=== PATIENT | female | born 1985 | race Caucasian/White ===

== ENCOUNTER 2018-07-18 19:40 | Inpatient (IN) | payer BC ==
[~2018-07-18] VITALS: Ht 154.9 cm; Wt 56.9 kg
[~2018-07-18 19:40] MED LIST: PREN1TAB17 PO
[2018-07-18] MEDS ORDERED: HYDROmorphONE 1 MG/ML SYG IV STA (19:41)
[2018-07-18] MEDS ORDERED: SOD CHLORIDE 0.9% 1,000 ML IV STA (19:41)
[2018-07-18] MEDS ORDERED: ONDANSETRON 4 MG INJ IV STA (19:41)
[2018-07-18] MEDS ORDERED: KETOROLAC 15 MG INJ IV STA (19:41)
[2018-07-18] MEDS ORDERED: LORAZEPAM 2 MG INJ IV ONE (20:00)
[2018-07-18] MEDS ORDERED: HYDR25TA6 PO (21:42)
[2018-07-18] MEDS ORDERED: POTA10TA18 PO (21:43)
[2018-07-18] MEDS ORDERED: CEPH250C PO (21:43)
[2018-07-18] MEDS ORDERED: TAMS-14 PO (21:43)
[2018-07-18] MEDS ORDERED: TRAM1TAB58 PO (21:46)
[2018-07-18] MEDS ORDERED: CEFTRIAXONE 1 GM/50 ML (PMX) 50 ML IVPB ONE (22:00)
--- NOTE | 2018-07-18 22:22 | ERD ---
ER Documentation Chief Complaint Chief Complaint FLANK PAIN, SEEN TODAY; HX OF KIDNEY STONE HPI 33-year-old female who presents to the emergency room complaining of severe intractable left flank pain. Patient has a history of kidney stones. She just had lithotripsy today with ureteral stent placement. The patient has intractable 10 out of 10 pain that is now constant on the left side rating to the left lower quadrant. No fevers or chills chest pain or shortness of breath nausea or vomiting or diarrhea. ROS All systems reviewed and are negative except as per history of present illness. Medications Home Meds Reported Medications Tramadol HCl/Acetaminophen (Ultracet Tablet) 1 Each Tablet, 1 EACH PO BID, TAB 37.5MG-325MG BID 07/18/18 Tamsulosin Hcl* (Flomax*) 0.4 Mg Cap.er.24h, 0.8 MG PO HS, CAP 07/18/18 Potassium Citrate* (Potassium Citrate* ER) 10 Meq Tablet.sa, 10 MEQ PO TID, TAB.SA 07/18/18 Cephalexin* (Cephalexin*) 250 Mg Capsule, 250 MG PO DAILY, #28 CAP 07/18/18 Hydrochlorothiazide* (Hydrochlorothiazide*) 25 Mg Tab, 25 MG PO DAILY, #30 TAB 07/18/18 Discontinued Reported Medications Vit-Iron Fumarate-FA ( Tablet) 1 Each Tablet, 1 EACH PO DAILY 12/19/12 Allergies Allergies: Coded Allergies: meperidine (Unverified Allergy, Unknown, 07/18/18) sulfamethoxazole (Unverified Allergy, Unknown, 07/18/18) trimethoprim (Unverified Allergy, Unknown, 07/18/18) PMhx/Soc Hx Miscellaneous Medical Probl: Yes (KIDNEY STONES) Hx Alcohol Use: No Hx Substance Use: No Hx Tobacco Use: No Smoking Status: Never smoker FmHx Family History: No diabetes Physical Exam Vitals Vital Signs Date Temp Pulse Resp B/P (MAP) Pulse Ox O2 O2 Flow FiO2 Time Delivery Rate 07/18/18 98.0 79 19 118/89 99 20:00 (99) Physical Exam General: Extremely uncomfortable Head: Normocephalic, atraumatic. Eyes: Pupils equally reactive, EOM intact ENT: Moist mucous membranes Neck: Supple, no lymphadenopathy Respiratory: Lungs clear bilaterally, no distress Cardiovascular: RRR, no murmurs, rubs, or gallops Abdominal: Soft, non-tender, non-distended, no peritoneal signs : Deferred MSK: No edema, no unilateral swelling, 5/5 strength Neurologic: Alert and oriented, moving all extremities, normal speech, no focal weakness, no cerebellar signs Skin: No rash Psych: Normal mood Result Diagram: 07/18/18195507/18/181955 Results 24 hrs Laboratory Tests Test 07/18/18 19:56 07/18/18 21:18 07/18/18 21:22 White Blood Count 18.2 10^3/ul Red Blood Count 4.48 10^6/ul Hemoglobin 13.6 g/dl Hematocrit 38.6 % Mean Corpuscular Volume 86.2 fl Mean Corpuscular Hemoglobin 30.4 pg Mean Corpuscular 35.2 g/dl Hemoglobin Concent Red Cell Distribution Width 11.5 % Platelet Count 174 10^3/UL Mean Platelet Volume 12.4 fl Immature Granulocytes % 0.800 % Neutrophils % 80.1 % Lymphocytes % 8.5 % Monocytes % 9.9 % Eosinophils % 0.2 % Basophils % 0.5 % Nucleated Red Blood Cells % 0.0 /100WBC Immature Granulocytes # 0.150 10^3/ul Neutrophils # 14.6 10^3/ul Lymphocytes # 1.5 10^3/ul Monocytes # 1.8 10^3/ul Eosinophils # 0.0 10^3/ul Basophils # 0.1 10^3/ul Nucleated Red Blood Cells # 0.0 10^3/ul Sodium Level 137 mmol/L Potassium Level 3.7 mmol/L Chloride Level 101 mmol/L Carbon Dioxide Level 21 mmol/L Anion Gap 15 Blood Urea Nitrogen 13 mg/dl Creatinine 0.78 mg/dl Est Glomerular Filtrat > 60 mL/min Rate mL/min Glucose Level 109 mg/dl Calcium Level 9.5 mg/dl Urine Color GEOVANY Urine Clarity CLEAR Urine pH 8.0 Urine Specific [place] 1.005 Urine Ketones NEGATIVE mg/dL Urine Nitrite POSITIVE mg/dL Urine Bilirubin NEGATIVE mg/dL Urine Urobilinogen 1+ mg/dL Urine Leukocyte Esterase 3+ Jeanette/ul Urine Microscopic RBC > 182 /HPF Urine Microscopic WBC 47 /HPF Urine Bacteria FEW /HPF Urine Yeast (Budding) FEW /HPF Urine Hemoglobin 3+ mg/dL Urine Glucose NEGATIVE mg/dL Urine Total Protein NEGATIVE mg/dl POC Beta HCG, Qualitative NEGATIVE Current Medications Medications Dose Sig/Jennifer Start Time Status Last (Trade) Ordered Route PRN Stop Time Admin Dose Reason Admin Sodium 1,000 ml @ Q1H STAT 07/18/18 DC 07/18/18 Chloride 1,000 mls/hr IV 19:41 20:12 07/18/18 20:40 1 mg ONCE STAT 07/18/18 DC 07/18/18 Hydromorphone IV 19:41 20:12 HCl 07/18/18 19:42 (Dilaudid) Ondansetron 4 mg ONCE STAT 07/18/18 DC 07/18/18 HCl (Zofran IV 19:41 20:12 Inj) 07/18/18 19:42 Ketorolac 15 mg ONCE STAT 07/18/18 DC 07/18/18 Tromethamine IV 19:41 20:12 (Toradol) 07/18/18 19:42 Lorazepam 1 mg ONCE ONCE 07/18/18 DC 07/18/18 (Ativan) IV 20:00 20:12 07/18/18 20:01 Ceftriaxone 50 ml @ ONCE ONCE 07/18/18 Sodium 100 mls/hr IVPB 22:00 07/18/18 22:29 Procedures/MDM EKG, MONITORS, & DIAGNOSTIC IMAGING: KUB and ultrasound pending to be followed by admitting team LAB INTERPRETATION: I reviewed the laboratory testing and it shows leukocytosis, possible urinary tract infection MEDICAL DECISION MAKING: Patient presents with intractable left flank pain with recent ureteral stent placement and lithotripsy. Likely secondary to lithotripsy and passing of the stones. At this point I would like to avoid unnecessary CT imaging given the known history of stones and low concern for complication. ER COURSE: * Patient received pain control medication and anxiolysis * Laboratory testing shows evidence of possible urinary tract infection. Urine culture has been sent, ceftriaxone ordered. * I was able to speak to the patient's on-call urologist Dr. Banuelos on-call for Dr. Velasco, He would like the patient to be admitted and is okay with Dr. Garcia consulting. I spoke to Dr. Garcia who requests ultrasound and KUB. He agrees with the plan of care. CONSULTATION: Urology as documented above DISPOSITION PLAN: Accepting care team and consultations: I discussed the current laboratory data, diagnostic imaging and emergency care provided. Admitting team: Dr. Starkey Admitting team indication: Insurance directed Departure Diagnosis: Primary Impression: Acute left flank pain Additional Impressions: Ureteral calculus, left Urinary tract infection Urinary tract infection type: site unspecified Hematuria presence: with hematuria Qualified Codes: N39.0 - Urinary tract infection, site not specified; R31.9 - Hematuria, unspecified Condition: RODRÍGUEZ Valdes MD Jul 18, 2018 22:22
[2018-07-18] MEDS ORDERED: ACETAMINOPHEN 325 MG TAB PO PRN (22:30)
[2018-07-18] MEDS ORDERED: ONDANSETRON 4 MG INJ IV PRN (22:30)
[2018-07-19 00:07] VITALS: Ht 154.9 cm; Wt 56.9 kg
[2018-07-19 01:24] VITALS: BP 100/67; PULSE 78; RESP 18
[2018-07-19] MEDS ORDERED: ONDANSETRON 4 MG INJ IV PRN (01:30)
--- NOTE | 2018-07-19 01:32 | QN ---
Documentation Comment H&P dict a/p 1. ?complicatec uti with UA and leukocytosis, cont rocephin, await urology 2. L ureter pain with stnt MICA GONZALEZ MD Jul 19, 2018 01:31
--- NOTE | 2018-07-19 01:59 | HP ---
DATE OF ADMISSION: 07/18/2018 CHIEF COMPLAINT: Left flank pain. HISTORY OF PRESENTING ILLNESS: Ms. Blackburn presents to the emergency room at [facility] hours after undergoing lithotripsy with stent placement. She states that as soon as the anesthe federico wore off, she began having pain. This became progressively more severe. She was unable to contr ol it with the tramadol plus Tylenol she was given at home and came here to the emergency department. She has had several episodes of vomiting. Denies any fevers or chills. PAST MEDICAL HISTORY: Nil. MEDICATIONS OUTPATIENT: Include: 1. Tramadol. 2. Hydrochlorothiazide. 3. Flomax. 4. Keflex. ALLERGIES: 1. DEMEROL. 2. BACTRIM. SOCIAL HISTORY: The patient lives at home in [facility] with her and children. She is independe nt of activities of daily living. Denies tobacco, alcohol or illicit drug use. FAMILY HISTORY: Noncontributory. REVIEW OF SYSTEMS: Five systems reviewed and found not to be revealing. PHYSICAL EXAMINATION: VITAL SIGNS: Blood pressure is 112/78, pulse rate 82, respirations 20, temperature is 98. GENERAL: Pleasant woman in no acute distress, alert and oriented x3. HEENT: Normocephalic, atraumatic without evident scleral icterus, perioral cyanosis. Mucous membran es are moist. NECK: Soft and supple without masses. No evidence of jugular venous distention or carotid bruits. CHEST: Clear to auscultation and percussion bilaterally. HEART: Regular rate and rhythm, S1-S2, no added sounds. ABDOMEN: Soft, nontender, nondistended without palpable hepatosplenomegaly. EXTREMITIES: Without clubbing, cyanosis or edema. SKIN: Without rashes. NEUROLOGIC: Grossly intact. LABORATORY STUDIES: Reveal hemoglobin 13.6 g/dL, white count of 18,200, platelets of 174,000. Sodiu m 137, potassium 3.7, chloride 101, bicarbonate 21, BUN 13, creatinine 0.78, glucose 109. UA shows g reater than 182 red cells, 3+ esterase, 47 white cells. DIAGNOSTIC DATA: Renal ultrasound shows multiple stones involving the left kidney. ASSESSMENT AND PLAN: 1. Genitourinary: The patient with refractory pain after lithotripsy. Continue pain control. Awai t urology evaluation. 2. Possible urinary tract infection. Continue Rocephin. Dictated By: MICA GONZALEZ MD RER/NTS Conf#: [id number] DID#: [id number] CC: LAURA LAZO MD;*EndCC*
[2018-07-19] MEDS: DEXTROSE 5%-0.45% NACL 1,000 ML IV SCH ×5 (02:09→20:00)
[2018-07-19] MEDS: HYDROmorphONE 0.5 MG/0.5 ML SYG IV PRN ×6 (02:10→20:17)
[2018-07-19 02:12] VITALS: BP 107/69; PULSE 82; RESP 18
[2018-07-19 07:39] VITALS: BP 119/72; PULSE 80; RESP 18
--- NOTE | 2018-07-19 08:54 | CONS ---
Assessment/Plan Assessment/Plan Hospital Course (Demo Recall) This is a 33-year-old female who is known to have a history of medullary sponge kidney who underwent left extracorporeal shockwave lithotripsy and insertion of left ureteral JJ stent on 07/18/2018. Patient after her discharge from the facility continued to have severe pain that was not controlled with oral pain medications so she presented to the emergency room and was admitted. The patie nt reports undergoing another lithotripsy to right renal stones last year and she has been on potassium citrate in an attempt to prevent stone formation Renal ultrasound and a KUB showed the stone in the left kidney. The JJ stent is in a good position. There is no hydronephrosis. Urine was sent for culture and sensitivity and the result is pending. Recommend pain medications and continue antibiotics. She may go on regular diet. No plan for any surgical intervention at the present. Consultation Date/Type/Reason Admit Date/Time Jul 18, 2018 at 22:29 Date of Consultation: Jul 19, 2018 Type of Consult Urology Reason for Consultation Left renal colic, status post extracorporeal shockwave lithotripsy to a stone in the left kidney and insertion of a JJ stent Requesting Provider: MICA GONZALEZ MD Date/Time of Note DATE: 07/19/18 TIME: 08:47 Hx of Present Illness This is a 33-year-old female who is known to have a history of medullary sponge kidney who underwent left extracorporeal shockwave lithotripsy and insertion of left ureteral JJ stent on 07/18/2018. Patient after her discharge from the facility continued to have severe pain that was not controlled with oral pain medications so she presented to the emergency room and was admitted. The patient reports undergoing another lithotripsy to right renal stones last year and she has been on potassium citrate in an attempt to prevent stone formation Constitutional: no complaints Eyes: no complaints ENT: no complaints Respiratory: no complaints; No wheezing Cardiovascular: no complaints; No chest pain Gastrointestinal: no complaints Genitourinary: flank pain (Left side) Musculoskeletal: no complaints Skin: no complaints Neurologic: no complaints Endocrine: no complaints Lymphatic: no complaints Psychological: no complaints Immunologic: no complaints Past Medical History Medical History: renal disease (Medullary sponge kidney) Home Meds Reported Medications Tramadol HCl/Acetaminophen (Ultracet Tablet) 1 Each Tablet, 1 EACH PO BID, TAB 37.5MG-325MG BID 07/18/18 Tamsulosin Hcl* (Flomax*) 0.4 Mg Cap.er.24h, 0.8 MG PO HS, CAP 07/18/18 Potassium Citrate* (Potassium Citrate* ER) 10 Meq Tablet.sa, 10 MEQ PO TID, TAB.SA 07/18/18 Cephalexin* (Cephalexin*) 250 Mg Capsule, 250 MG PO DAILY, #28 CAP 07/18/18 Hydrochlorothiazide* (Hydrochlorothiazide*) 25 Mg Tab, 25 MG PO DAILY, #30 TAB 07/18/18 Discontinued Reported Medications Vit-Iron Fumarate-FA ( Tablet) 1 Each Tablet, 1 EACH PO DAILY 12/19/12 Medications Current Medications Ondansetron HCl (Zofran Inj) 4 mg BRIDGE ORDER PRN IV NAUSEA/VOMITING; Start 07/18/18 at 22:30; Stop 07/19/18 at 22:29 Acetaminophen (Tylenol Tab) 650 mg ER BRIDGE PRN PO .MILD PAIN 1-3 OR TEMP; Start 07/18/18 at 22:30; Stop 07/19/18 at 22:29 Hydromorphone HCl (Dilaudid) 0.5 mg Q2H PRN IV SEVERE PAIN LEVEL 7-10 Last administered on 07/19/18at 05:23; Admin Dose 0.5 MG; Start 07/19/18 at 01:30 Hydralazine HCl (Apresoline) 25 mg Q6H PRN PO sbp>160; Start 07/19/18 at 01:30 Acetaminophen (Tylenol Tab) 650 mg Q4H PRN PO MILD PAIN(1-3)OR ELEVATED TEMP; Start 07/19/18 at 01:30 Ondansetron HCl (Zofran Inj) 4 mg Q4H PRN IV NAUSEA AND/OR VOMITING; Start 07/19/18 at 01:30 Dextrose/Sodium Chloride 1,000 ml @ 125 mls/hr Q8H IV Last administered on 07/19/18at 02:09; Admin Dose 125 MLS/HR; Start 07/19/18 at 01:30 Ceftriaxone Sodium 50 ml @ 100 mls/hr DAILY IVPB ; Start 07/19/18 at 09:00 Tamsulosin HCl (Flomax) 0.8 mg HS PO ; Start 07/19/18 at 21:00 Allergies: Coded Allergies: meperidine (Unverified Allergy, Unknown, 07/18/18) sulfamethoxazole (Unverified Allergy, Unknown, 07/18/18) trimethoprim (Unverified Allergy, Unknown, 07/18/18) Past Surgical History Past Surgical Hx: other (Right extracorporeal shockwave lithotripsy last year and left extracorporeal shockwave lithotripsy and insertion of a JJ stent on 07/18/2018) Social History Alcohol Use: rarely Smoking Status: Never smoker Drug Use: none Exam/Review of Systems Exam Vitals Vital Signs Date Temp Pulse Resp B/P (MAP) Pulse Ox O2 O2 Flow FiO2 Time Delivery Rate 07/19/18 98.3 80 18 119/72 99 07:39 (88) 07/19/18 Room Air 00:08 Intake and Output 07/18/18 07/18/18 07/19/18 1515:00 23:00 07:00 IntakeIntake Total 500 ml BalanceBalance 500 ml Constitutional: alert, oriented Psych: no complaints Head: normocephalic Eyes: nl conjunctiva ENMT: nl external ears & nose Neck: supple Respiratory: normal air movement; No wheezing Cardiovascular: No jugular venous distention (JVD) Gastrointestinal: soft Genitourinary - Female: CVA tenderness (Left side) Musculoskeletal: nl extremities to inspection Extremities: No calf tenderness Neurological: nl mental status Skin: nl turgor Results Result Diagram: 07/18/18195507/18/181955 Results 24hrs Laboratory Tests Test 07/18/18 19:56 07/18/18 21:18 07/18/18 21:22 White Blood Count 18.2 H Red Blood Count 4.48 Hemoglobin 13.6 Hematocrit 38.6 Mean Corpuscular Volume 86.2 Mean Corpuscular Hemoglobin 30.4 Mean Corpuscular Hemoglobin Concent 35.2 Red Cell Distribution Width 11.5 Platelet Count 174 Mean Platelet Volume 12.4 H Immature Granulocytes % 0.800 H Neutrophils % 80.1 H Lymphocytes % 8.5 L Monocytes % 9.9 Eosinophils % 0.2 Basophils % 0.5 Nucleated Red Blood Cells % 0.0 Immature Granulocytes # 0.150 H Neutrophils # 14.6 H Lymphocytes # 1.5 Monocytes # 1.8 H Eosinophils # 0.0 Basophils # 0.1 Nucleated Red Blood Cells # 0.0 Sodium Level 137 Potassium Level 3.7 Chloride Level 101 Carbon Dioxide Level 21 Anion Gap 15 H Blood Urea Nitrogen 13 Creatinine 0.78 Est Glomerular Filtrat Rate mL/min > 60 Glucose Level 109 Calcium Level 9.5 Urine Color GEOVANY Urine Clarity CLEAR Urine pH 8.0 Urine Specific [place] 1.005 Urine Ketones NEGATIVE Urine Nitrite POSITIVE A Urine Bilirubin NEGATIVE Urine Urobilinogen 1+ H Urine Leukocyte Esterase 3+ H Urine Microscopic RBC > 182 H Urine Microscopic WBC 47 H Urine Bacteria FEW A Urine Yeast (Budding) FEW A Urine Hemoglobin 3+ H Urine Glucose NEGATIVE Urine Total Protein NEGATIVE POC Beta HCG, Qualitative NEGATIVE Imaging Imaging Renal ultrasound: 1. Multiple stones involving the left kidney with the large measuring 12 4 mm. No evidence of hydronephrosis. 2. Normal sonographic findings of the right kidney and urinary bladder. KUB: 1. 12 mm stone in the left lower pole. JJ stent in place without evidence of stones along the course of the left ureter. 2. No acute intra-abdominal abnormality. No evidence of obstruction. Medications Medication Current Medications Ondansetron HCl (Zofran Inj) 4 mg BRIDGE ORDER PRN IV NAUSEA/VOMITING; Start 07/18/18 at 22:30; Stop 07/19/18 at 22:29 Acetaminophen (Tylenol Tab) 650 mg ER BRIDGE PRN PO .MILD PAIN 1-3 OR TEMP; Start 07/18/18 at 22:30; Stop 07/19/18 at 22:29 Hydromorphone HCl (Dilaudid) 0.5 mg Q2H PRN IV SEVERE PAIN LEVEL 7-10 Last a dministered on 07/19/18at 05:23; Admin Dose 0.5 MG; Start 07/19/18 at 01:30 Hydralazine HCl (Apresoline) 25 mg Q6H PRN PO sbp>160; Start 07/19/18 at 01:30 Acetaminophen (Tylenol Tab) 650 mg Q4H PRN PO MILD PAIN(1-3)OR ELEVATED TEMP; Start 07/19/18 at 01:30 Ondansetron HCl (Zofran Inj) 4 mg Q4H PRN IV NAUSEA AND/OR VOMITING; Start 07/19/18 at 01:30 Dextrose/Sodium Chloride 1,000 ml @ 125 mls/hr Q8H IV Last administered on 07/19/18at 02:09; Admin Dose 125 MLS/HR; Start 07/19/18 at 01:30 Ceftriaxone Sodium 50 ml @ 100 mls/hr DAILY IVPB ; Start 07/19/18 at 09:00 Tamsulosin HCl (Flomax) 0.8 mg HS PO ; Start 07/19/18 at 21:00 LAURA LAZO MD Jul 19, 2018 08:54
[2018-07-19] MEDS: CEFTRIAXONE 1 GM/50 ML (PMX) 50 ML IVPB SCH (09:01)
--- NOTE | 2018-07-19 10:43 | PN ---
Date/Time of Note Date/Time of Note DATE: 07/19/18 TIME: 10:40 Subjective Chart was reviewed. Still having left-sided abdominal pain and left flank pain. No dysuria. No gross hematuria. Objective Vitals Vital Signs Date Temp Pulse Resp B/P (MAP) Pulse Ox O2 O2 Flow FiO2 Time Delivery Rate 07/19/18 98.3 80 18 119/72 99 07:39 (88) 07/19/18 Room Air 00:08 Intake and Output 07/18/18 07/18/18 07/19/18 1414:59 22:59 06:59 IntakeIntake Total 500 ml BalanceBalance 500 ml Lungs clear to auscultation bilaterally Cardiac regular rate and rhythm Abdomen left-sided tenderness to palpation Left CVA tenderness Extremities no edema Neurological nonfocal Results Result Diagram: 07/18/18195507/18/181955 Medications Medications Current Medications Ondansetron HCl (Zofran Inj) 4 mg BRIDGE ORDER PRN IV NAUSEA/VOMITING; Start 07/18/18 at 22:30; Stop 07/19/18 at 22:29 Acetaminophen (Tylenol Tab) 650 mg ER BRIDGE PRN PO .MILD PAIN 1-3 OR TEMP; Start 07/18/18 at 22:30; Stop 07/19/18 at 22:29 Hydromorphone HCl (Dilaudid) 0.5 mg Q2H PRN IV SEVERE PAIN LEVEL 7-10 Last administered on 07/19/18at 09:06; Admin Dose 0.5 MG; Start 07/19/18 at 01:30 Hydralazine HCl (Apresoline) 25 mg Q6H PRN PO sbp>160; Start 07/19/18 at 01:30 Acetaminophen (Tylenol Tab) 650 mg Q4H PRN PO MILD PAIN(1-3)OR ELEVATED TEMP; Start 07/19/18 at 01:30 Ondansetron HCl (Zofran Inj) 4 mg Q4H PRN IV NAUSEA AND/OR VOMITING; Start 07/19/18 at 01:30 Dextrose/Sodium Chloride 1,000 ml @ 125 mls/hr Q8H IV Last administered on 07/19/18at 02:09; Admin Dose 125 MLS/HR; Start 07/19/18 at 01:30 Ceftriaxone Sodium 50 ml @ 100 mls/hr DAILY IVPB Last administered on 07/19/18at 09:01; Admin Dose 100 MLS/HR; Start 07/19/18 at 09:00 Tamsulosin HCl (Flomax) 0.8 mg HS PO ; Start 07/19/18 at 21:00 VTE Prophylaxis Risk score (from Ns)>0 risk: 3 SCD applied (from [facility] [place]): Yes Lines/Catheters IV Catheter Type: Saline Lock Briseno in Place: No Assessment/Plan Assessment/Plan 33-year-old female with left nephrolithiasis Postop day 1 lithotripsy and left ureteral stent placement UTI/pyelonephritis Continue IV Rocephin Continue pain control Check blood and urine culture results Urology follow-up is appreciated LARRY DODD MD Jul 19, 2018 10:43
[2018-07-19 14:16] VITALS: BP 99/66; PULSE 78; RESP 18
[2018-07-19] MEDS ORDERED: MAGNESIUM HYDROXIDE 30ML CUP PO PRN (16:00)
[2018-07-19 19:22] VITALS: BP 122/77; PULSE 76; RESP 18
[2018-07-19] MEDS ORDERED: TAMSULOSIN (SR) 0.4 MG CAP PO SCH (21:00)
[2018-07-20] MEDS: HYDROmorphONE 0.5 MG/0.5 ML SYG IV PRN ×2 (00:13→10:12)
[2018-07-20] MEDS: DEXTROSE 5%-0.45% NACL 1,000 ML IV SCH ×3 (01:22→09:30)
[2018-07-20 02:00] VITALS: BP 103/66; PULSE 78; RESP 18
[2018-07-20] MEDS: ACETAMINOPHEN 325 MG TAB PO PRN ×2 (05:39→09:14)
--- NOTE | 2018-07-20 08:05 | CONS ---
Consult Date/Type/Reason Admit Date/Time Jul 18, 2018 at 22:29 Initial Consult Date 07/19/18 Type of Consultation: Urology Reason for Consultation Left flank pain, status post left extracorporeal shockwave lithotripsy and insertion of left ureteral JJ stent on 07/18/2018 Requesting Provider: MICA GONZALEZ MD Date/Time of Note DATE: 07/20/18 TIME: 08:02 Subjective The patient is feeling better, her pain is less, she still has blood in her urine and that is not unusual. Objective Vitals Vital Signs Date Temp Pulse Resp B/P (MAP) Pulse Ox O2 O2 Flow FiO2 Time Delivery Rate 07/20/18 98.2 78 18 103/66 99 02:00 (78) 07/19/18 Room Air 14:16 Intake and Output 07/19/18 07/19/18 07/20/18 1515:00 23:00 07:00 IntakeIntake Total 1150 ml 2475 ml 1000 ml OutputOutput Total 600 ml 200 ml BalanceBalance 550 ml 2275 ml 1000 ml Results/Medications Result Diagram: 07/20/18 0537 07/18/18 1956 Results 24 hrs Laboratory Tests Test 07/20/18 05:37 White Blood Count 7.8 # Red Blood Count 3.77 L Hemoglobin 11.3 L Hematocrit 33.3 L Mean Corpuscular Volume 88.3 Mean Corpuscular Hemoglobin 30.0 Mean Corpuscular Hemoglobin Concent 33.9 Red Cell Distribution Width 11.6 Platelet Count 157 Mean Platelet Volume 11.9 H Immature Granulocytes % 0.500 H Neutrophils % 53.0 Lymphocytes % 26.9 Monocytes % 14.5 H Eosinophils % 4.3 Basophils % 0.8 Nucleated Red Blood Cells % 0.0 Immature Granulocytes # 0.040 H Neutrophils # 4.2 Lymphocytes # 2.1 Monocytes # 1.1 H Eosinophils # 0.3 Basophils # 0.1 Nucleated Red Blood Cells # 0.0 Home Meds Reported Medications Tramadol HCl/Acetaminophen (Ultracet Tablet) 1 Each Tablet, 1 EACH PO BID, TAB 37.5MG-325MG BID 07/18/18 Tamsulosin Hcl* (Flomax*) 0.4 Mg Cap.er.24h, 0.8 MG PO HS, CAP 07/18/18 Potassium Citrate* (Potassium Citrate* ER) 10 Meq Tablet.sa, 10 MEQ PO TID, TAB.SA 07/18/18 Cephalexin* (Cephalexin*) 250 Mg Capsule, 250 MG PO DAILY, #28 CAP 07/18/18 Hydrochlorothiazide* (Hydrochlorothiazide*) 25 Mg Tab, 25 MG PO DAILY, #30 TAB 07/18/18 Discontinued Reported Medications Vit-Iron Fumarate-FA ( Tablet) 1 Each Tablet, 1 EACH PO DAILY 12/19/12 Medications Current Medications Hydromorphone HCl (Dilaudid) 0.5 mg Q2H PRN IV SEVERE PAIN LEVEL 7-10 Last administered on 07/20/18at 00:13; Admin Dose 0.5 MG; Start 07/19/18 at 01:30 Hydralazine HCl (Apresoline) 25 mg Q6H PRN PO sbp>160; Start 07/19/18 at 01:30 Acetaminophen (Tylenol Tab) 650 mg Q4H PRN PO MILD PAIN(1-3)OR ELEVATED TEMP Last administered on 07/20/18at 05:39; Admin Dose 650 MG; Start 07/19/18 at 01:30 Ondansetron HCl (Zofran Inj) 4 mg Q4H PRN IV NAUSEA AND/OR VOMITING; Start 07/19/18 at 01:30 Dextrose/Sodium Chloride 1,000 ml @ 125 mls/hr Q8H IV Last administered on 07/20/18at 05:34; Admin Dose 125 MLS/HR; Start 07/19/18 at 01:30 Ceftriaxone Sodium 50 ml @ 100 mls/hr DAILY IVPB Last administered on 07/19/18at 09:01; Admin Dose 100 MLS/HR; Start 07/19/18 at 09:00 Tamsulosin HCl (Flomax) 0.8 mg HS PO Last administered on 07/19/18at 20:17; Admin Dose 0.8 MG; Start 07/19/18 at 21:00 Magnesium Hydroxide (Milk Of Mag) 30 ml DAILY PRN PO CONSTIPATION Last administered on 07/19/18at 16:50; Admin Dose 30 ML; Start 07/19/18 at 16:00 Assessment/Plan Hospital Course (Demo Recall) This is a 33-year-old female who is known to have a history of medullary sponge kidney who underwent left extracorporeal shockwave lithotripsy and insertion of left ureteral JJ stent on 07/18/2018. Patient after her discharge from the facility continued to have severe pain that was not controlled with oral pain medications so she presented to the emergency room and was admitted. The patient reports undergoing another lithotripsy to right renal stones last year and she has been on potassium citrate in an attempt to prevent stone formation Renal ultrasound and a KUB showed the stone in the left kidney. The JJ stent is in a good position. There is no hydronephrosis or hematoma. Urine culture shows no growth in 24 hours Patient may be discharged home on oral pain medications and antibiotic and she could follow-up with LAURA Reza MD Jul 20, 2018 08:05
[2018-07-20 08:14] VITALS: BP 109/76; PULSE 52; RESP 16
[2018-07-20] MEDS: CEFTRIAXONE 1 GM/50 ML (PMX) 50 ML IVPB SCH (10:12)
[2018-07-20] MEDS ORDERED: HYDR-4011 PO (11:15)
--- NOTE | 2018-07-20 11:15 | PDOCDIS ---
Discharge Instructions CONDITION [id number] Patient Condition: [id number] Good HOME CARE INSTRUCTIONS: [id number] Diet Instructions: [id number] Regular ACTIVITY: [id number] Activity Restrictions: [id number] No Restrictions FOLLOW UP/APPOINTMENTS Follow-up Plan Dr Velasco 1 week pcp 1 week LARRY DODD MD Jul 20, 2018 11:15
--- NOTE | 2018-07-21 03:58 | DS ---
DATE OF ADMISSION: 07/18/2018 DATE OF DISCHARGE: 07/20/2018 DISCHARGE DIAGNOSES: 1. A 33-year-old female presents with abdominal pain and left flank pain. 2. Status post lithotripsy and left ureteral stent placement prior to admission. HOSPITAL COURSE: A 33-year-old female with a long history of nephrolithiasis underwent lithotripsy a nd left ureteral stent placement the day prior to admission. She presented to emergency room with co mplaints of severe left-sided abdominal pain and left flank pain. Initially, white blood cell count was 18,000, and BUN appeared contaminated. She was seen in consultation by Dr. Garcia. The stent w as found to be in appropriate place with no evidence of hydronephrosis. Multiple stones involving th e left kidney were noted. Urine culture did not show any growth after 24 hours. Her pain improved. White blood cell count was back to normal. She was cleared for discharge by Dr. Garcia. The patie nt is being discharged in a stable condition. She will follow up with PCP and Dr. Velasco, her own uro logist. MEDICATIONS ON DISCHARGE: 1. Cephalexin 250 mg t.i.d. 2. Hydrochlorothiazide 25 mg daily. 3. Potassium citrate 10 mEq daily. 4. Flomax 0.4 mg daily. 5. Tramadol 1 tablet twice daily as needed. 6. [place] 5/325 p.o. q.4h p.r.n. #20. Dictated By: LARRY REYES/NTS Conf#: [id number] DID#: [id number] CC: MICA GONZALEZ MD;*End*
== END 2018-07-20 13:15 | disposition home or self-care (01) | DRG 699 ==
LOC: E/R 19:40 → 2NE 22:29
PROVIDERS: ADMIT Legal Medicine; ATTEND Legal Medicine
DX: T83.84XA Pain due to genitourinary prosthetic devices, implants and grafts, initial encounter (principal); N39.0 Urinary tract infection, site not specified; Q61.5 Medullary cystic kidney; N20.0 Calculus of kidney; G89.18 Other acute postprocedural pain; Y84.8 Other medical procedures as the cause of abnormal reaction of the patient, or of later complication, without mention of misadventure at the time of the procedure; Y92.019 Unspecified place in single-family (private) house as the place of occurrence of the external cause; Z96.0 Presence of urogenital implants; Z87.442 Personal history of urinary calculi
CPT/HCPCS: 36415; 74018; 76775; 80048; 81001; 81025; 85025; 87086; 96374; 96375; J0696; J1170; J1885; J2060; J2405; J7030; J7042